=== PATIENT | female | born 1990 | race Caucasian/White ===

== ENCOUNTER 2018-02-04 18:12 | Outpatient (CLI) | payer SELFPAY ==
[~2018-02-04] VITALS: Ht 180.3 cm; Wt 97.7 kg
[2018-02-04 18:57] VITALS: BP 96/46
[2018-02-04] MEDS ORDERED: LACTATED RINGERS 500 ML IVBOLUS ONE (19:00)
[2018-02-04] MEDS ORDERED: ONDANSETRON 2MG/ML, 2ML IVPush PRN (19:00)
[2018-02-04] MEDS ORDERED: LACTATED RINGERS 1,000 ML IV SCH (19:00)
[2018-02-04 19:14] LABS: BASOPHILS # (AUTO) 0.01 x10^3/uL (0-0.1); BASOPHILS % (AUTO) 0 % (0-1); EOSINOPHILS # (AUTO) 0.01 x10^3/uL (0-0.4); EOSINOPHILS % (AUTO) 0 % (1-7); LYMPHOCYTES # (AUTO) 0.71 x10^3/uL (1-3.4); LYMPHOCYTES % (AUTO) 7 % (22-44); MD NO; MEAN CORPUSCULAR HGB CONC 34.9 g/dL (32.4-35.8); MEAN CORPUSCULAR VOLUME 94.6 fL (80-100); MEAN PLATELET VOLUME 7.7 fL (7.4-10.4); MONOCYTES # (AUTO) 0.58 x10^3/uL (0.2-0.8); MONOCYTES % (AUTO) 6 % (2-9); NEUTROPHILS # (AUTO) 9.25 x10^3/uL (1.8-6.8); NEUTROPHILS % (AUTO) 88 % (42-75); PLATELET COUNT 144 x10^3/uL (130-400); RED BLOOD COUNT 3.82 x10^6/uL (3.82-5.3)
[2018-02-04 19:22] LABS: ALANINE AMINOTRANSFERASE 15 U/L (12-78); ALBUMIN 2.6 g/dL (3.4-5.0); ANION GAP 10 mmol/L (5-15); CALCIUM 7.6 mg/dL (8.5-10.1); CHLORIDE 109 mmol/L (98-107); CREATININE 0.54 mg/dL (0.55-1.02)
[2018-02-04 19:24] LABS: ALKALINE PHOSPHATASE 51 U/L (45-117); BILIRUBIN,TOTAL 0.8 mg/dL (0.2-1.0); TOTAL PROTEIN 6.3 g/dL (6.4-8.2)
[2018-02-04 19:24] LABS: MICROSCOPIC NOT IND
[2018-02-04] MEDS ORDERED: ONDANSETRON 2MG/ML, 2ML ONE (19:26)
[2018-02-04] MEDS ORDERED: D5%-LACTATED RINGERS 1,000 ML IV SCH (21:30)
[2018-02-04 23:32] LABS: MICROSCOPIC INDICATED
== END 2018-02-05 00:10 | disposition home or self-care (01) ==
LOC: LDOP 18:12
PROVIDERS: ATTEND Obstetrics & Gynecology
DX: O36.8120 Decreased fetal movements, second trimester, not applicable or unspecified (principal); O26.892 Other specified pregnancy related conditions, second trimester; R10.9 Unspecified abdominal pain; R19.7 Diarrhea, unspecified; O21.9 Vomiting of pregnancy, unspecified; Z3A.27 27 weeks gestation of pregnancy
CPT/HCPCS: 36415; 80053; 81001; 81003; 85025; 87086; 96360; 96361; J2405; J7120; J7121

== ENCOUNTER 2018-04-28 14:30 | Inpatient (IN) | payer BC, OTHER ==
[~2018-04-28] VITALS: Ht 180.3 cm; Wt 105.0 kg
[2018-05-02 08:02] VITALS: BP 122/59
[2018-05-02] MEDS ORDERED: MISOPROSTOL 25 MCG TABLET ONE (08:09)
[2018-05-02] MEDS ORDERED: OXYTOCIN 30U/ 0.9% NaCL 500ML 500 ML IV ONE (08:15)
[2018-05-02] MEDS ORDERED: FENTANYL PF 100 MCG/2ML IVPush PRN (08:30)
[2018-05-02] MEDS ORDERED: FENTANYL PF 100 MCG/2ML IV PRN (08:30)
[2018-05-02] MEDS ORDERED: MISOPROSTOL 25 MCG TABLET VG PRN (08:30)
[2018-05-02] MEDS ORDERED: ONDANSETRON 2MG/ML, 2ML IVPush PRN (08:30)
[2018-05-02] MEDS ORDERED: ALUMINUM/MAG/SIMETHICONE 30 ML UDC PO PRN (08:30)
[2018-05-02] MEDS ORDERED: TERBUTALINE 1 MG/ML, 1ML IVPush PRN (08:30)
[2018-05-02] MEDS ORDERED: CALCIUM CARBONATE 500 MG TAB.CHEW PO PRN (08:30)
[2018-05-02] MEDS: LACTATED RINGERS 1,000 ML IV SCH ×4 (08:30→17:00)
[2018-05-02 08:47] LABS: BASOPHILS # (AUTO) 0.03 x10^3/uL (0-0.1); BASOPHILS % (AUTO) 0 % (0-1); EOSINOPHILS % (AUTO) 1 % (1-7); LYMPHOCYTES % (AUTO) 21 % (22-44); MD NO; MEAN CORPUSCULAR VOLUME 94.1 fL (80-100); MEAN PLATELET VOLUME 8.3 fL (7.4-10.4); MONOCYTES # (AUTO) 0.82 x10^3/uL (0.2-0.8); MONOCYTES % (AUTO) 6 % (2-9); NEUTROPHILS # (AUTO) 9.06 x10^3/uL (1.8-6.8); NEUTROPHILS % (AUTO) 71 % (42-75); PLATELET COUNT 172 x10^3/uL (130-400); RED BLOOD COUNT 4.03 x10^6/uL (3.82-5.3); RED CELL DISTRIBUTION WIDTH 14.2 % (9.6-15.2)
[2018-05-02] MEDS: OXYTOCIN 30U/ 0.9% NaCL 500ML 500 ML IV SCH ×3 (10:52→20:57)
[2018-05-02] MEDS ORDERED: OXYTOCIN 30U/ 0.9% NaCL 500ML 500 ML IV SCH (10:52)
[2018-05-02] MEDS ORDERED: HYDROcodone/APAP 5/325 TABLET PO PRN ×4 (11:00→21:00)
[2018-05-02] MEDS ORDERED: CARBOPROST TROMETHAMINE 250 MCG/ML, 1ML IM PRN ×2 (11:00→21:00)
[2018-05-02] MEDS ORDERED: ACETAMINOPHEN 325 MG TABLET PO PRN ×2 (11:00→21:00)
[2018-05-02] MEDS ORDERED: OXYTOCIN 10 UNITS/ML, 1ML IM PRN ×2 (11:00→21:00)
[2018-05-02] MEDS ORDERED: NEWBORN KIT ONE (12:04)
[2018-05-02] MEDS ORDERED: MISOPROSTOL 200 MCG TABLET ONE (12:04)
[2018-05-02] MEDS ORDERED: LIDOCAINE 1%, 50ML ONE (12:04)
[2018-05-02] MEDS ORDERED: OXYTOCIN 30U/ 0.9% NaCL 500ML 500 ML ONE (12:29)
[2018-05-02] MEDS: OXYTOCIN 30U/ 0.9% NaCL 500ML 500 ML IV PRN (12:45)
[2018-05-02] MEDS ORDERED: FENTANYL/BUPIV./NS/PF 250 ML EPIDCONT SCH (16:41)
[2018-05-02] MEDS ORDERED: BUPIVACAINE 0.25% ONE ×2 (16:49→16:55)
[2018-05-02 16:50] LABS: MICROSCOPIC INDICATED
[2018-05-02] MEDS ORDERED: METHYLERGONOVINE 0.2 MG/ML IM PRN (21:00)
[2018-05-02] MEDS ORDERED: ONDANSETRON 2MG/ML, 2ML IV PRN (21:00)
[2018-05-02] MEDS ORDERED: MISOPROSTOL 200 MCG TABLET PR PRN (21:00)
[2018-05-02 23:20] VITALS: BP 104/50
[2018-05-03 01:50] VITALS: BP 97/47
[2018-05-03] MEDS: IBUPROFEN 600 MG TABLET PO PRN ×4 (03:00→23:34)
[2018-05-03 05:40] VITALS: BP 91/55
[2018-05-03 06:03] LABS: BASOPHILS # (AUTO) 0.04 x10^3/uL (0-0.1); BASOPHILS % (AUTO) 0 % (0-1); EOSINOPHILS # (AUTO) 0.07 x10^3/uL (0-0.4); EOSINOPHILS % (AUTO) 0 % (1-7); LYMPHOCYTES # (AUTO) 2.96 x10^3/uL (1-3.4); LYMPHOCYTES % (AUTO) 17 % (22-44); MD NO; MEAN CORPUSCULAR HGB CONC 34.6 g/dL (32.4-35.8); MEAN CORPUSCULAR VOLUME 95.3 fL (80-100); MEAN PLATELET VOLUME 8.4 fL (7.4-10.4); MONOCYTES # (AUTO) 1.37 x10^3/uL (0.2-0.8); MONOCYTES % (AUTO) 8 % (2-9); NEUTROPHILS # (AUTO) 12.74 x10^3/uL (1.8-6.8); NEUTROPHILS % (AUTO) 74 % (42-75); PLATELET COUNT 150 x10^3/uL (130-400); RED BLOOD COUNT 3.78 x10^6/uL (3.82-5.3); RED CELL DISTRIBUTION WIDTH 14.3 % (9.6-15.2)
[2018-05-03 07:15] VITALS: BP 101/51
[2018-05-03] MEDS: OXYTOCIN 30U/ 0.9% NaCL 500ML 500 ML IV SCH ×4 (08:57→16:58)
[2018-05-03] MEDS: DOCUSATE 100 MG CAPSULE PO PRN ×2 (09:07→23:34)
[2018-05-03] MEDS: PRENATAL VIT/IRON/FA 1 EACH TABLET PO SCH (09:09)
[2018-05-03 13:10] VITALS: BP 98/68
[2018-05-03 16:59] VITALS: BP 96/58
[2018-05-03] MEDS ORDERED: IBUP-1222 PO (17:55)
[2018-05-03] MEDS ORDERED: HYDR-3237 PO (17:56)
[2018-05-03] MEDS ORDERED: SENN-52 PO (17:57)
[2018-05-03] MEDS ORDERED: DIPH,PERTUSS(ACELL),TET VAC/PF NC IM-VACC ONE (18:00)
[2018-05-03 19:45] VITALS: BP 91/54
[2018-05-04] MEDS: OXYTOCIN 30U/ 0.9% NaCL 500ML 500 ML IV SCH ×2 (02:52→02:57)
[2018-05-04] MEDS: LACTATED RINGERS 1,000 ML IV SCH (07:19)
[2018-05-04] MEDS: OXYTOCIN 30U/ 0.9% NaCL 500ML 500 ML IV PRN (07:20)
[2018-05-04 07:43] VITALS: BP 97/57
[2018-05-04] MEDS: IBUPROFEN 600 MG TABLET PO PRN (07:58)
[2018-05-04] MEDS: DOCUSATE 100 MG CAPSULE PO PRN (07:58)
[2018-05-04] MEDS: PRENATAL VIT/IRON/FA 1 EACH TABLET PO SCH (07:59)
== END 2018-05-04 09:50 | disposition home or self-care (01) | DRG 775 ==
LOC: LDIP 05-02 07:43 → 2NW 05-02 23:00
PROVIDERS: ADMIT Obstetrics & Gynecology; ATTEND Obstetrics & Gynecology
PROC: 10E0XZZ Delivery of Products of Conception, External Approach (ICD-10-PCS; principal; 2018-05-02)
PROC: 3E0P7VZ Introduction of Hormone into Female Reproductive, Via Natural or Artificial Opening (ICD-10-PCS; 2018-05-02)
PROC: 10H07YZ Insertion of Other Device into Products of Conception, Via Natural or Artificial Opening (ICD-10-PCS; 2018-05-02)
PROC: 3E0R3BZ Introduction of Anesthetic Agent into Spinal Canal, Percutaneous Approach (ICD-10-PCS; 2018-05-02)
PROC: 00HU33Z Insertion of Infusion Device into Spinal Canal, Percutaneous Approach (ICD-10-PCS; 2018-05-02)
PROC: 10907ZC Drainage of Amniotic Fluid, Therapeutic from Products of Conception, Via Natural or Artificial Opening (ICD-10-PCS; 2018-05-02)
PROC: 0HQ9XZZ Repair Perineum Skin, External Approach (ICD-10-PCS; 2018-05-02)
DX: O70.0 First degree perineal laceration during delivery (principal); Z37.0 Single live birth; Z3A.40 40 weeks gestation of pregnancy; Z90.89 Acquired absence of other organs
CPT/HCPCS: 36415; 81001; 85025; 86850; 86900; 90715; J2590; J3010; J7120